=== PATIENT | male | born 1980 | race African-American/Black ===

== ENCOUNTER → 2017-05-18 | Outpatient (CLI) | payer OTHER ==
[2017-05-18 17:08] LABS: ABSOLUTE BASOPHILS # (AUTO) 0.1 10^3/uL (0.0-0.2); ABSOLUTE EOSINOPHILS # (AUTO) 0.1 10^3/uL (0.0-0.6); ABSOLUTE LYMPHOCYTES (AUTO) 2.4 10^3/uL (0.5-4.7); ABSOLUTE MONOCYTES (AUTO) 0.4 10^3/uL (0.1-1.4); ABSOLUTE NEUT (AUTO) 2.7 10^3/uL (1.7-8.2); EOSINOPHILS % (AUTO) 1.2 % (0-6); HEMATOCRIT 41.8 % (37.9-51.0); HEMOGLOBIN 14.3 g/dL (13.5-17.0); HGB HCT DIFFERENCE 1.1; MEAN CORPUSCULAR HEMOGLOBIN 29.9 pg (27.0-33.4); MEAN CORPUSCULAR HGB CONC 34.3 g/dL (32.0-36.0); MEAN CORPUSCULAR VOLUME 87 fl (80-97); MONOCYTES % (AUTO) 7.7 % (3-13); RED BLOOD COUNT 4.79 10^6/uL (4.35-5.55); RED CELL DISTRIBUTION WIDTH 13.3 % (11.5-14.0); SEGMENTED NEUTROPHILS % (AUTO) 47.1 % (42-78); WHITE BLOOD COUNT 5.7 10^3/uL (4.0-10.5)
[2017-05-18 17:55] LABS: ERYTHROCYTE SEDIMENTATION RATE 8 mm/hr (0-15)
[2017-05-20 06:38] LABS: THYROXINE (T4) 8.3 ug/dL (4.5-12.0)
== END ==
LOC: OD 16:02
PROVIDERS: ATTEND Specialist
DX: R63.4 Abnormal weight loss (principal); R10.9 Unspecified abdominal pain
CPT/HCPCS: 36415; 84436; 84479; 85025; 85652

== ENCOUNTER 2017-05-30 07:31 | Day surgery (SDC) | payer OTHER ==
--- NOTE | 2017-05-24 13:29 | HISTORY AND PHYSICAL E ---
History and Physical NAME: ZEE SHEA : 1980 AGE: 37Y ADMITTED: 05/30/2017 ROOM: CHIEF COMPLAINT: 1. CONSTIPATION. ONE BOWEL MOVEMENT EVERY 3 WEEKS. 2. BLOATING. SOCIAL HISTORY: . He does drink at times, alcohol. SURGICAL HISTORY: 1. Vasectomy. 2. Tonsillectomy. REVIEWING OF SYSTEMS: CARDIAC: Negative. RESPIRATORY: Negative. ENDOCRINE: Negative. GASTROINTESTINAL: Bloating. Severe constipation. ONCOLOGY/HEMATOLOGY: Skin cancer in his . FAMILY HISTORY: Father is alive; heart disease. Mom is alive; hypertension. PHYSICAL EXAMINATION: GENERAL: Pleasant. VITAL SIGNS: Blood pressure 140/80. Weight 214. Pulse of 70. Temp is 98. Respirations 18. HEAD, EYES, EARS, NOSE, THROAT: Normal. NECK: Is supple. LUNGS: Are clear. ABDOMEN: Soft. NEUROLOGIC: Examination negative. CONCLUSION: SEVERE CONSTIPATION. PLAN: Colonoscopy. Admit 05/30/2017; today is 05/23/2017. DICTATING PHYSICIAN: JUNITO RODRIGUEZ M.D. [id number] PHY#: [id number] ID: [id number] JOB#: [id number] ACCT: [id number] cc:JUNITO RODRIGUEZ M.D. >
[~2017-05-30 07:31] MED LIST: EPINEPHRINE INJ 1 MG/10 ML DISP.SYRIN ONE; FLUMAZENIL INJ 0.5 MG/5 ML VIAL ONE; GLUCAGON,HUMAN RECOMB 1 MG INJ ONE; GLYCOPYRROLATE INJ 0.4 MG/2 ML VIAL ONE; MIDAZOLAM 2 MG/2 ML INJ ONE; NALOXONE HCL INJ/PF 0.4 MG/1 ML SDV ONE; ONDANSETRON HCL INJ/PF 4 MG/2 ML SDV ONE
[2017-05-30] MEDS: MIDAZOLAM 2 MG/2 ML INJ ONE ×2 (08:05→08:15)
[2017-05-30] MEDS: FENTANYL CITRATE INJ/PF 100 MCG/2 ML AMPUL ONE ×3 (08:09→08:20)
[2017-05-30 09:26] VITALS: BP 128/88
[2017-05-30 09:47] LABS: ABSOLUTE LYMPHOCYTES (AUTO) 1.6 10^3/uL (0.5-4.7); ABSOLUTE MONOCYTES (AUTO) 0.3 10^3/uL (0.1-1.4); ABSOLUTE NEUT (AUTO) 2.3 10^3/uL (1.7-8.2); BASOPHILS % (AUTO) 1.1 % (0-2); EOSINOPHILS % (AUTO) 1.1 % (0-6); HEMATOCRIT 37.5 % (37.9-51.0); HEMOGLOBIN 12.8 g/dL (13.5-17.0); HGB HCT DIFFERENCE 0.9; LYMPHOCYTES % (AUTO) 37.3 % (13-45); MEAN CORPUSCULAR HEMOGLOBIN 30.2 pg (27.0-33.4); MEAN CORPUSCULAR HGB CONC 34.1 g/dL (32.0-36.0); MEAN CORPUSCULAR VOLUME 89 fl (80-97); MONOCYTES % (AUTO) 6.8 % (3-13); RED BLOOD COUNT 4.24 10^6/uL (4.35-5.55); RED CELL DISTRIBUTION WIDTH 12.9 % (11.5-14.0); SEGMENTED NEUTROPHILS % (AUTO) 53.7 % (42-78); WHITE BLOOD COUNT 4.2 10^3/uL (4.0-10.5)
[2017-05-30 10:09] LABS: ALANINE AMINOTRANSFERASE 26 U/L (21-72); ALKALINE PHOSPHATASE 49 U/L (38-126); ANION GAP 11 (5-19); ASPARTATE AMINO TRANSFERASE 19 U/L (17-59); BILIRUBIN,TOTAL 0.8 mg/dL (0.2-1.3); BLOOD UREA NITROGEN 7 mg/dL (7-20); CALCIUM 9.1 mg/dL (8.4-10.2); CARBON DIOXIDE 31 mmol/L (22-30); CHLORIDE 101 mmol/L (98-107); CREATININE RESULT 0.93 mg/dL (0.52-1.25); GLUCOSE 148 mg/dL (75-110); SODIUM 142.9 mmol/L (137-145); TOTAL PROTEIN 6.5 g/dL (6.3-8.2)
--- NOTE | 2017-05-30 12:53 | DISCHARGE SUMMARY E ---
Discharge Summary NAME: ZEE SHEA : 1980 AGE: 37Y ADMITTED: 05/30/2017 DISCHARGED: 05/30/2017 SUMMARY: The patient is a 37-year-old male who presented with severe constipation, 1 bowel movement every 3 weeks. The patient does have history of skin lesion. He underwent colonoscopy today that was completed to the cecum. Large amount of full liquid stool. DISCHARGE PLAN: The patient does have a history of skin cancer. We will do lab testing. Consideration of follow-up colonoscopy in 1 year with more prep. CONCLUSIONS: 1. Constipation, etiology undetermined. 2. History of skin cancer. 3. Consideration for follow-up colonoscopy in 1 year. DICTATING PHYSICIAN: JUNITO RODRIGUEZ M.D. [id number] PHY#: [id number] ID: [id number] JOB#: [id number] ACCT: [id number] cc:[facility] JUNITO RODRIGUEZ M.D. >
--- NOTE | 2017-05-30 12:56 | OPERATIVE REPORT E ---
Operative Report NAME: ZEE SHEA : 1980 AGE: 37Y DATE OF SURGERY: 05/30/2017 ROOM: PREOPERATIVE DIAGNOSIS: Severe constipation, 1 bowel movement every 3 weeks. POSTOPERATIVE DIAGNOSIS: Redundant colon, inadequate prep. No polyps. PROCEDURE: Colonoscopy to the cecum. SURGEON: JUNITO RODRIGUEZ M.D. RECOMMENDATION: Followup colonoscopy 1 year with better prep and more prep. DESCRIPTION OF PROCEDURE: Rectal exam normal. Sigmoid descending colon full liquid stool, normal. Transverse colon redundant, full liquid stool, normal. Ascending colon better prep. No evidence of polyp. Cecum: I can see it head on, no growth, full liquid stool. Scope withdrawn from cecum, ascending, transverse colon, descending sigmoid all the way to the rectum. CONCLUSION: Redundant colon, inadequate prep. No evidence of polyps. RECOMMENDATION: Followup colonoscopy 1 year with more prep. DICTATING PHYSICIAN: JUNITO RODRIGUEZ M.D. [id number] PHY#: [id number] ID: [id number] JOB#: [id number] ACCT: [id number] cc:[facility] JUNITO JOEL M.D. >
== END 2017-05-30 09:35 | disposition home or self-care (01) ==
LOC: END 07:31
PROVIDERS: ATTEND Specialist
DX: K59.00 Constipation, unspecified (principal); Q43.8 Other specified congenital malformations of intestine; Z85.828 Personal history of other malignant neoplasm of skin
CPT/HCPCS: 45378; 36415; 85025; 80053; J2250; J3010; J2405; J0171; J1610; J2310; J3490